=== PATIENT | female | born 1950 | race Caucasian/White ===

== ENCOUNTER → 2017-04-25 | Outpatient (CLI) | payer MEDICARE, BC ==
[~2017-04-25] MED LIST: ALLER CLEAR PO; Aldactone100 MG PO; BACL10 PO; CLARITIN10 MG; DULO30 PO; EFFEXOR; HYDACE5 PO; HYDMOR2 PO; Hard Nails2500 MCG PO; KRILL OIL500 MG; LEVSOD100 PO; LEVSOD125 PO; LEVSOD25 PO; LORA10ER PO; MELO7.5 PO; METF500 PO; NITR100CA PO; Norco 5-325 Ta1 EACH PO; OMEP40CA12 PO; ONDA4 PO; OXYACE5T PO; Omeprazole20 M1 PO; PREG25 PO; PREG75 PO; RXHYD5325 PO; RXHYDMOR2 PO; SPIR25 PO; VENL75ER PO
== END | disposition home or self-care (01) ==
LOC: PLD 13:08 → LAB SHORT 13:08
DX: N85.00 Endometrial hyperplasia, unspecified (principal)
CPT/HCPCS: 88305

== ENCOUNTER → 2017-11-15 | Outpatient (CLI) | payer MEDICARE, BC ==
[2017-11-15 12:57] LABS: Source, Urine Clean Catch
[2017-11-15 13:23] LABS: Appearance, Urine Hazy (Clear); Bilirubin, Urine Neg (Neg); Blood, Urine 2+ (Neg); Color, Urine Yellow (P-Yellow); Glucose Qualitative, Urine Neg (Neg); Ketones, Urine Neg (Neg); Leukocyte Esterase, Urine 3+ (Neg); Nitrite, Urine Pos (Neg); Protein, Urine Neg (Neg); Urobilinogen, Urine NORM (Normal)
[2017-11-15 13:43] LABS: White Blood Cells, Urine TNTC /hpf (0-5)
[2017-11-15 13:44] LABS: Bacteria Many /hpf; Squamous Epithelial Cells Few /hpf (Few)
== END | disposition home or self-care (01) ==
LOC: LAB SHORT 12:56 → LAB 12:56
PROVIDERS: Physical Medicine & Rehabilitation Pain Medicine
DX: Z40.9 Encounter for prophylactic surgery, unspecified (principal)
CPT/HCPCS: 81001

== ENCOUNTER 2018-08-24 19:15 | Emergency (ER) | payer MEDICARE, BC ==
[~2018-08-24] VITALS: Ht 154.9 cm; Wt 105.7 kg
[2018-08-24] MEDS ORDERED: LIDO700A20 TOP (20:32)
== END 2018-08-24 20:42 | disposition home or self-care (01) ==
LOC: ER 19:15
DX: S30.1XXA Contusion of abdominal wall, initial encounter (principal); W22.8XXA Striking against or struck by other objects, initial encounter; Z88.0 Allergy status to penicillin; Z88.2 Allergy status to sulfonamides; Z88.1 Allergy status to other antibiotic agents; Z88.5 Allergy status to narcotic agent; Z91.048 Other nonmedicinal substance allergy status; Z79.899 Other long term (current) drug therapy; E03.9 Hypothyroidism, unspecified
CPT/HCPCS: 72100; 72170; 96372; 99283-25; J3010

== ENCOUNTER 2019-02-24 19:16 | Emergency (ER) | payer MEDICARE, BC ==
[~2019-02-24] VITALS: Ht 154.9 cm; Wt 103.9 kg
[~2019-02-24 19:16] MED LIST changes: +LIDO700A20 TOP
[2019-02-24 20:26] LABS: BASOPHILS ABSOLUTE AUTO 0.08 K/mm3 (0.00-0.23); BASOPHILS PERCENT AUTO 1 % (0-2); EOSINOPHILS ABSOLUTE AUTO 0.34 K/mm3 (0.00-0.68); EOSINOPHILS PERCENT AUTO 4 % (0-6); Hematocrit 51.7 % (33.0-51.0); Hemoglobin 16.9 g/dL (11.5-16.0); IMMATURE GRAN ABSOLUTE AUTO 0.04 K/mm3 (0.00-0.10); IMMATURE GRAN PERCENT AUTO 0 % (0-1); LYMPHOCYTES ABSOLUTE AUTO 2.65 K/mm3 (0.84-5.20); LYMPHOCYTES PERCENT AUTO 28 % (21-46); MONOCYTES ABSOLUTE AUTO 0.85 K/mm3 (0.16-1.47); MONOCYTES PERCENT AUTO 9 % (4-13); Mean Corpuscular HGB 29.1 pg (26.0-34.0); Mean Corpuscular HGB Conc 32.7 g/dL (31.5-36.5); Mean Corpuscular Volume 89 fL (80-100); Mean Platelet Volume 9.2 fL (9.1-12.4); NEUTROPHILS ABSOLUTE AUTO 5.56 K/mm3 (1.96-9.15); NEUTROPHILS PERCENT AUTO 59 % (41-73); Platelet Count 402 K/mm3 (150-400); RDW Coefficient Variation 13.2 % (11.7-14.2); RDW Standard Deviation 43.3 fL (35.1-46.3); White Blood Cell Count 9.52 K/mm3 (4.00-11.30)
[2019-02-24 20:46] LABS: Alanine Aminotransfer (ALT/SGP 36 U/L (12-78); Albumin, Blood 3.7 g/dL (3.4-5.0); Albumin/Globulin Ratio 0.9 (0.8-1.8); Alk Phos 86 U/L (50-136); Anion Gap 7 mmol/L (6-16); Aspartate Aminotrans (AST/SGOT 22 U/L (12-37); Bilirubin, Total 0.3 mg/dL (0.1-1.0); Blood Urea Nitrogen 16 mg/dL (8-24); Bun/Creatinine Ratio 22.3 (12.0-20.0); CO2, Blood 24 mmol/L (21-32); Calcium, Blood 9.6 mg/dL (8.5-10.1); Chloride, Blood 109 mmol/L (98-108); Creatinine, Blood 0.72 mg/dL (0.40-1.00); Globulin, Blood 3.9 g/dL (2.2-4.0); Glomerular Filtration Rate >60 (60-); Glucose, Blood 103 mg/dL (70-99); Potassium, Blood 4.3 mmol/L (3.5-5.5); Sodium, Blood 140 mmol/L (136-145); Total Protein, Blood 7.6 g/dL (6.4-8.2); Troponin I <0.015 ng/mL (0.000-0.040)
[2019-02-24] MEDS ORDERED: Cleocin HCl300 MG PO (21:48)
[2019-02-24] MEDS ORDERED: BENZ100A PO (21:49)
== END 2019-02-24 22:01 | disposition home or self-care (01) ==
LOC: ER 19:16
PROVIDERS: Physician Assistant
DX: H66.91 Otitis media, unspecified, right ear (principal); Z88.0 Allergy status to penicillin; Z88.1 Allergy status to other antibiotic agents; Z88.2 Allergy status to sulfonamides; Z88.5 Allergy status to narcotic agent; Z91.048 Other nonmedicinal substance allergy status; Z88.8 Allergy status to other drugs, medicaments and biological substances; Z79.899 Other long term (current) drug therapy; E03.9 Hypothyroidism, unspecified
CPT/HCPCS: 36415; 71046; 80053; 84484; 85025; 93005; 93010; 99284-25

== ENCOUNTER 2019-03-07 18:27 | Emergency (ER) | payer MEDICARE, BC ==
[~2019-03-07] VITALS: Ht 154.9 cm; Wt 103.0 kg
[~2019-03-07 18:27] MED LIST changes: +BENZ100A PO; +Cleocin HCl300 MG PO
== END 2019-03-07 21:01 | disposition home or self-care (01) ==
LOC: ER 18:27
DX: J40 Bronchitis, not specified as acute or chronic (principal); H92.01 Otalgia, right ear; M79.7 Fibromyalgia; E03.9 Hypothyroidism, unspecified; G47.30 Sleep apnea, unspecified; Z88.0 Allergy status to penicillin; Z88.2 Allergy status to sulfonamides; Z88.1 Allergy status to other antibiotic agents; Z88.8 Allergy status to other drugs, medicaments and biological substances; Z88.5 Allergy status to narcotic agent; Z91.048 Other nonmedicinal substance allergy status; Z88.6 Allergy status to analgesic agent; Z79.899 Other long term (current) drug therapy
CPT/HCPCS: 99282

== ENCOUNTER 2019-03-17 19:35 | Emergency (ER) | payer MEDICARE, BC ==
[~2019-03-17] VITALS: Ht 157.5 cm; Wt 102.5 kg
== END 2019-03-17 23:17 | disposition home or self-care (01) ==
LOC: ER 19:35
DX: H92.01 Otalgia, right ear (principal); E03.9 Hypothyroidism, unspecified; M79.7 Fibromyalgia; Z88.0 Allergy status to penicillin; Z88.2 Allergy status to sulfonamides; Z88.1 Allergy status to other antibiotic agents; Z88.8 Allergy status to other drugs, medicaments and biological substances; Z91.048 Other nonmedicinal substance allergy status; Z88.5 Allergy status to narcotic agent
CPT/HCPCS: 70491; 99283-25; Q9967

== ENCOUNTER 2019-11-12 01:01 | Emergency (ER) | payer MEDICARE, BC ==
[~2019-11-12] VITALS: Ht 154.9 cm; Wt 104.3 kg
[2019-11-12] MEDS ORDERED: NYSTOP15 GM TOP (02:02)
== END 2019-11-12 02:23 | disposition home or self-care (01) ==
LOC: ER 01:01
DX: L30.4 Erythema intertrigo (principal); E03.9 Hypothyroidism, unspecified; Z88.0 Allergy status to penicillin; Z88.2 Allergy status to sulfonamides; Z88.5 Allergy status to narcotic agent; Z88.6 Allergy status to analgesic agent; Z88.1 Allergy status to other antibiotic agents; Z88.8 Allergy status to other drugs, medicaments and biological substances; Z79.899 Other long term (current) drug therapy
CPT/HCPCS: 99282

== ENCOUNTER → 2020-03-01 | Outpatient (CLI) | payer MEDICARE, BC ==
[~2020-03-01] MED LIST changes: +ASPI81CH PO; +CHOLP PO; +CLOB.05TO TOP; +DICLOFENAC SOD100 G1 TP; +EZET10 PO; +FAMO20 PO; +LEVOTHYROXINE PO; +NYSTOP15 GM TOP; +OXYCODONE-ACET1 EAC3 PO; +PRAVASTATIN SOD20 MG PO; +PSYLLIUM FIBER0.4 GM PO; +SPIR50 PO
== END ==
LOC: LAB 10:00 → LAB SHORT 10:00
DX: R19.7 Diarrhea, unspecified (principal)
CPT/HCPCS: 87015; 87045; 87046; 87177; 87205; 87209; 87493; 87899

== ENCOUNTER 2020-05-10 07:49 | Day surgery (SDC) | payer MEDICARE, BC ==
[~2020-05-10] VITALS: Ht 157.5 cm; Wt 107.8 kg
[~2020-05-10 07:49] MED LIST changes: -ASPI81CH PO; -CHOLP PO; -DICLOFENAC SOD100 G1 TP; -EZET10 PO; -FAMO20 PO; -LEVOTHYROXINE PO; -OXYCODONE-ACET1 EAC3 PO; -PRAVASTATIN SOD20 MG PO; -PSYLLIUM FIBER0.4 GM PO; -SPIR50 PO
--- NOTE | 2020-05-10 08:23 | NUR ---
History, Chart, Medications and Allergies reviewed before start of procedure. Patient States Post-Procedure ride home has been arranged. Patient states colon prep results clear.
--- NOTE | 2020-05-10 08:40 | NUR ---
05/10/20 0840 Shannan Alexander History, Chart, Medications and Allergies reviewed before start of procedure. Patient confirms NPO status and agrees with scheduled surgery. PATIENT DETERMINED TO BE ASA APPROPRIATE FOR PROPOFOL SEDATION PRIOR TO START OF PROCEDURE BY . 3-LEAD EKG REVIEWED WITH PHYSICIAN PRIOR TO START OF PROCEDURE. MONITOR INTACT WITH CONTINUOUS PULSE OXIMETRY AND INTERMITTENT BP. SUPPLEMENTAL O2 TO BE TITRATED THROUGHOUT PROCEDURE TO MAINTAIN O2 SATURATION ABOVE 90%.
[2020-05-31] MEDS ORDERED: OXYCODONE-ACET1 EAC3 PO (20:56)
[2020-05-31] MEDS ORDERED: DICLOFENAC SOD100 G1 TP (20:57)
== END 2020-05-10 10:15 | disposition home or self-care (01) ==
LOC: ORSCMMR 07:49 → ORD 08:30 → ORSCMMR 08:30
PROVIDERS: Internal Medicine Gastroenterology
PROC: 0DBL8ZX Excision of Transverse Colon, Via Natural or Artificial Opening Endoscopic, Diagnostic (ICD-10-PCS; principal; 2020-05-10 08:30)
PROC: 0DBK8ZX Excision of Ascending Colon, Via Natural or Artificial Opening Endoscopic, Diagnostic (ICD-10-PCS; principal; 2020-05-10 08:30)
PROC: 0DBN8ZX Excision of Sigmoid Colon, Via Natural or Artificial Opening Endoscopic, Diagnostic (ICD-10-PCS; principal; 2020-05-10 08:30)
DX: R19.7 Diarrhea, unspecified (principal); D12.2 Benign neoplasm of ascending colon; D12.3 Benign neoplasm of transverse colon; K63.5 Polyp of colon; F43.10 Post-traumatic stress disorder, unspecified; E11.9 Type 2 diabetes mellitus without complications; G47.33 Obstructive sleep apnea (adult) (pediatric); Z79.899 Other long term (current) drug therapy; E66.01 Morbid (severe) obesity due to excess calories; Z68.42 Body mass index [BMI] 45.0-49.9, adult
CPT/HCPCS: 88305; J2250; J3010; J7120

== ENCOUNTER → 2020-05-20 | Outpatient (CLI) | payer MEDICARE, BC ==
[~2020-05-20] MED LIST changes: +ASPI81CH PO; +CHOLP PO; +DICLOFENAC SOD100 G1 TP; +EZET10 PO; +FAMO20 PO; +LEVOTHYROXINE PO; +OXYCODONE-ACET1 EAC3 PO; +PRAVASTATIN SOD20 MG PO; +PSYLLIUM FIBER0.4 GM PO; +SPIR50 PO
[2020-05-22 14:09] LABS: SARS COV-2 IGG AB Negative (Negative)
== END | disposition home or self-care (01) ==
LOC: LAB SHORT 18:45 → LAB 18:45
PROVIDERS: Physician Assistant
DX: Z20.822 Contact with and (suspected) exposure to COVID-19 (principal)
CPT/HCPCS: 86769

== ENCOUNTER 2020-05-31 18:50 | Emergency (ER) | payer MEDICARE, BC ==
[~2020-05-31] VITALS: Ht 154.9 cm; Wt 106.1 kg
== END 2020-05-31 23:31 | disposition home or self-care (01) ==
LOC: ER 18:50
DX: E86.0 Dehydration (principal); E11.9 Type 2 diabetes mellitus without complications; E03.9 Hypothyroidism, unspecified; Z79.899 Other long term (current) drug therapy; Z88.0 Allergy status to penicillin; Z88.2 Allergy status to sulfonamides
CPT/HCPCS: 36415; 80053; 81001; 81003; 85025; 87086; 93005; 93010; 99284-25; J7120; P9612

== ENCOUNTER 2020-07-20 16:53 | Observation (INO) | payer MEDICARE, BC ==
[~2020-07-20] VITALS: Ht 154.9 cm; Wt 109.7 kg
[~2020-07-20 16:53] MED LIST changes: -ASPI81CH PO; -CHOLP PO; -EZET10 PO; -FAMO20 PO; -LEVOTHYROXINE PO; -PRAVASTATIN SOD20 MG PO; -PSYLLIUM FIBER0.4 GM PO; -SPIR50 PO
[2020-07-20 17:21] LABS: BASOPHILS ABSOLUTE AUTO 0.07 K/mm3 (0.00-0.23); BASOPHILS PERCENT AUTO 1 % (0-2); EOSINOPHILS ABSOLUTE AUTO 0.33 K/mm3 (0.00-0.68); EOSINOPHILS PERCENT AUTO 3 % (0-6); Hematocrit 47.2 % (33.0-51.0); Hemoglobin 15.2 g/dL (11.5-16.0); IMMATURE GRAN ABSOLUTE AUTO 0.08 K/mm3 (0.00-0.10); IMMATURE GRAN PERCENT AUTO 1 % (0-1); LYMPHOCYTES ABSOLUTE AUTO 2.81 K/mm3 (0.84-5.20); LYMPHOCYTES PERCENT AUTO 29 % (21-46); MONOCYTES ABSOLUTE AUTO 0.67 K/mm3 (0.16-1.47); MONOCYTES PERCENT AUTO 7 % (4-13); Mean Corpuscular HGB 29.2 pg (26.0-34.0); Mean Corpuscular HGB Conc 32.2 g/dL (31.5-36.5); Mean Corpuscular Volume 91 fL (80-100); Mean Platelet Volume 9.2 fL (9.1-12.4); NEUTROPHILS ABSOLUTE AUTO 5.66 K/mm3 (1.96-9.15); NEUTROPHILS PERCENT AUTO 59 % (41-73); Platelet Count 390 K/mm3 (150-400); RDW Coefficient Variation 13.2 % (11.7-14.2); RDW Standard Deviation 43.9 fL (35.1-46.3); Red Blood Cell Count 5.21 M/mm3 (3.80-5.20); White Blood Cell Count 9.62 K/mm3 (4.00-11.30)
[2020-07-20 17:43] LABS: Alanine Aminotransfer (ALT/SGP 39 U/L (12-78); Albumin, Blood 3.4 g/dL (3.4-5.0); Alk Phos 96 U/L (50-136); Anion Gap 5 mmol/L (6-16); Aspartate Aminotrans (AST/SGOT 30 U/L (12-37); Bilirubin, Total 0.3 mg/dL (0.1-1.0); Blood Urea Nitrogen 14 mg/dL (8-24); Bun/Creatinine Ratio 18.3 (12.0-20.0); CO2, Blood 26 mmol/L (21-32); Calcium, Blood 8.8 mg/dL (8.5-10.1); Chloride, Blood 109 mmol/L (98-108); Creatinine, Blood 0.77 mg/dL (0.40-1.00); Globulin, Blood 3.5 g/dL (2.2-4.0); Glomerular Filtration Rate >60 (60-); Glucose, Blood 188 mg/dL (70-99); Potassium, Blood 4.5 mmol/L (3.5-5.5); Sodium, Blood 140 mmol/L (136-145); Total Protein, Blood 6.9 g/dL (6.4-8.2); Troponin I <0.015 ng/mL (0.000-0.040)
[2020-07-20] MEDS ORDERED: PRAVASTATIN SOD20 MG PO (20:14)
[2020-07-20] MEDS ORDERED: LEVOTHYROXINE PO (20:14)
[2020-07-20] MEDS ORDERED: SPIR50 PO (22:32)
[2020-07-21 05:30] LABS: BASOPHILS ABSOLUTE AUTO 0.11 K/mm3 (0.00-0.23); BASOPHILS PERCENT AUTO 1 % (0-2); EOSINOPHILS ABSOLUTE AUTO 0.37 K/mm3 (0.00-0.68); EOSINOPHILS PERCENT AUTO 3 % (0-6); Hematocrit 43.3 % (33.0-51.0); Hemoglobin 13.9 g/dL (11.5-16.0); IMMATURE GRAN ABSOLUTE AUTO 0.09 K/mm3 (0.00-0.10); IMMATURE GRAN PERCENT AUTO 1 % (0-1); LYMPHOCYTES ABSOLUTE AUTO 4.47 K/mm3 (0.84-5.20); LYMPHOCYTES PERCENT AUTO 41 % (21-46); MONOCYTES ABSOLUTE AUTO 0.95 K/mm3 (0.16-1.47); MONOCYTES PERCENT AUTO 9 % (4-13); Mean Corpuscular HGB 29.1 pg (26.0-34.0); Mean Corpuscular HGB Conc 32.1 g/dL (31.5-36.5); Mean Corpuscular Volume 91 fL (80-100); Mean Platelet Volume 9.5 fL (9.1-12.4); NEUTROPHILS ABSOLUTE AUTO 4.89 K/mm3 (1.96-9.15); NEUTROPHILS PERCENT AUTO 45 % (41-73); Platelet Count 334 K/mm3 (150-400); RDW Standard Deviation 43.2 fL (35.1-46.3); Red Blood Cell Count 4.77 M/mm3 (3.80-5.20); White Blood Cell Count 10.88 K/mm3 (4.00-11.30)
[2020-07-21 06:05] LABS: Alanine Aminotransfer (ALT/SGP 34 U/L (12-78); Albumin, Blood 3.1 g/dL (3.4-5.0); Albumin/Globulin Ratio 1.1 (0.8-1.8); Alk Phos 81 U/L (50-136); Anion Gap 7 mmol/L (6-16); Aspartate Aminotrans (AST/SGOT 21 U/L (12-37); Bilirubin, Total 0.2 mg/dL (0.1-1.0); Blood Urea Nitrogen 14 mg/dL (8-24); Bun/Creatinine Ratio 17.2 (12.0-20.0); CHOL/HDL RATIO 5.3; CO2, Blood 26 mmol/L (21-32); Calcium, Blood 8.4 mg/dL (8.5-10.1); Chloride, Blood 106 mmol/L (98-108); Cholesterol 192 mg/dL (50-200); Creatinine, Blood 0.81 mg/dL (0.40-1.00); Globulin, Blood 2.8 g/dL (2.2-4.0); Glomerular Filtration Rate >60 (60-); Glucose, Blood 85 mg/dL (70-99); HDL Cholesterol 36 mg/dL (>39); LDL/HDL RATIO 3.4; Low Density Lipoprotein Chol 122 mg/dL (0-110); Potassium, Blood 3.8 mmol/L (3.5-5.5); Sodium, Blood 139 mmol/L (136-145); Total Protein, Blood 5.9 g/dL (6.4-8.2); Triglycerides 169 mg/dL (30-160); Very Low Density Lipoprot Chol 33 mg/dL (6-32)
--- NOTE | 2020-07-21 06:37 | NUR ---
SHIFT SUMMARY: ADMITTED LAST NIGHT DUE TO NUMBNESS TO LEFT SIDE JAW AND FACE. AOX3. INDEPENDENT TO BATHROOM. REPORTS A DECREASE IN SENSATION ONLY TO FACE NOW. RECENT SURGERY ON NERVE STIMILATOR IN NECK DUE MULTIPLE BACK SURGERIES. SHE HAD ONE OF THE LEADS REPLACED AND A BATTERY. ALL NEURO CHECKS HAVE BEEN NEGATIVE ALL NIGHT. HEAD CT WAS NEGATIVE ALONG WITH XRAY. PLAN MRI THIS AM. DOES GET OCCATIONAL LIGHTHEADNESS AND DIZZINESS WHEN MOVING HEAD, SHE HAS ALREADY NOTIFIED HER NEURO DOCTOR REGARDING THIS ISSUES. VSS/AFEBRILE. HEADACHE, TYLENOL GIVEN. SLEPT ONLY FEW OURS. WILL REPORT TO DAYSHIFT. CALL LIGHT IN REACH.
--- NOTE | 2020-07-21 11:14 | NUR ---
MRI: CALLED AT 0920 AND GIVEN CONTACT INFORMATION TO CONFIRM IF NEUROTRANSMITTER IS MRI COMPATIBLE OR NOT.
--- NOTE | 2020-07-21 16:29 | NUR ---
Spiritual care note: Lengthy visit with Jeanie. I was tasked to speak with her about advanced care planning. She has many life stressors: caring for special needs young adults at home, a spouse in early dementia, numerous health issues, and a dtr who may be nearing end-of-life. She was interested in completing an Advanced Directive, but would like to discuss her wishes with family. I provided theraputic listening and spiritual direction to good effect. She admits the stress in her life may be exacerbating her physical illnesses. Prayer was well-recieved. She has a strong valerie that helps sustain her. She may be discharged later today.
[2020-07-21] MEDS ORDERED: ASPI81CH PO (16:35)
[2020-07-21] MEDS ORDERED: CHOLP PO (16:35)
[2020-07-21] MEDS ORDERED: FAMO20 PO (16:36)
[2020-07-21] MEDS ORDERED: EZET10 PO (16:36)
[2020-07-21] MEDS ORDERED: PSYLLIUM FIBER0.4 GM PO (16:37)
--- NOTE | 2020-07-21 18:41 | NUR ---
PATIENT DISCHARGED HOME WITH . TEACHBACK METHOD USED. PATIENT AND VERBALIZED UNDERSTANDING OF THE DISCHARGE INSTRUCTIONS AND ALL OF THEIR QUESTIONS WERE ANSWERED. ALL PERSONAL BELONGINGS SENT WITH PATIENT AT TIME OF DISCHARGE.
== END 2020-07-21 18:44 | disposition home or self-care (01) ==
LOC: ER 16:53 → MEDS 16:54
PROVIDERS: Physician Assistant; ADMIT Internal Medicine
DX: I63.9 Cerebral infarction, unspecified (principal); R20.0 Anesthesia of skin; E03.9 Hypothyroidism, unspecified; E11.22 Type 2 diabetes mellitus with diabetic chronic kidney disease; N18.30 Chronic kidney disease, stage 3 unspecified; G47.33 Obstructive sleep apnea (adult) (pediatric); K58.9 Irritable bowel syndrome, unspecified; G89.29 Other chronic pain; M19.90 Unspecified osteoarthritis, unspecified site; M79.7 Fibromyalgia; Z88.1 Allergy status to other antibiotic agents; Z88.5 Allergy status to narcotic agent; Z88.0 Allergy status to penicillin; Z88.2 Allergy status to sulfonamides; Z88.8 Allergy status to other drugs, medicaments and biological substances
CPT/HCPCS: 36415; 70450; 71045; 72040; 80053; 80061; 83036; 84443; 84484; 85025; 93005; 93010; 93306; 93880; 96372; 99285-25; A9270; G0378; J1650

== ENCOUNTER 2020-12-11 18:05 | Emergency (ER) | payer MEDICARE, BC ==
[~2020-12-11] VITALS: Ht 154.9 cm; Wt 107.0 kg
[~2020-12-11 18:05] MED LIST changes: +ASPI81CH PO; +CHOLP PO; +EZET10 PO; +FAMO20 PO; +LEVOTHYROXINE PO; +PRAVASTATIN SOD20 MG PO; +PSYLLIUM FIBER0.4 GM PO; +SPIR50 PO
[2020-12-11 18:34] LABS: Source, Urine Clean Catch
[2020-12-11 18:40] LABS: Appearance, Urine Clear (Clear); Bilirubin, Urine Neg (Neg); Blood, Urine 2+ (Neg); Color, Urine Yellow (P-Yellow); Glucose Qualitative, Urine Neg (Neg); Ketones, Urine Neg (Neg); Leukocyte Esterase, Urine 3+ (Neg); Nitrite, Urine Neg (Neg); Protein, Urine 1+ (Neg); Urobilinogen, Urine NORM (Normal); pH, Urine 6.5 (5.0-8.0)
[2020-12-11 18:58] LABS: White Blood Cells, Urine 25-50 /hpf (0-5)
[2020-12-11 18:59] LABS: Red Blood Cells, Urine 0-2 /hpf (0-2); Squamous Epithelial Cells Mod /hpf (Few)
[2020-12-11 19:05] LABS: Bacteria Mod /hpf
[2020-12-11] MEDS ORDERED: Macrobid 100 M100 MG PO (19:18)
== END 2020-12-11 19:50 | disposition home or self-care (01) ==
LOC: ER 18:05
PROVIDERS: Physician Assistant
DX: N39.0 Urinary tract infection, site not specified (principal); E11.9 Type 2 diabetes mellitus without complications; E03.9 Hypothyroidism, unspecified; G47.30 Sleep apnea, unspecified; Z79.82 Long term (current) use of aspirin; Z79.899 Other long term (current) drug therapy; Z88.0 Allergy status to penicillin; Z88.2 Allergy status to sulfonamides; Z88.1 Allergy status to other antibiotic agents; Z88.5 Allergy status to narcotic agent; Z88.8 Allergy status to other drugs, medicaments and biological substances
CPT/HCPCS: 81001; 87086; 99283; A9270

== ENCOUNTER 2021-02-22 20:20 | Emergency (ER) | payer MEDICARE, BC ==
[~2021-02-22] VITALS: Ht 154.9 cm; Wt 107.5 kg
[~2021-02-22 20:20] MED LIST changes: +Macrobid 100 M100 MG PO
[2021-02-22] MEDS ORDERED: CLEM1.34 (22:33)
[2021-02-22] MEDS ORDERED: PSEU120ER PO (22:35)
== END 2021-02-22 22:43 | disposition home or self-care (01) ==
LOC: ER 20:20
DX: B34.9 Viral infection, unspecified (principal); E11.9 Type 2 diabetes mellitus without complications; G47.33 Obstructive sleep apnea (adult) (pediatric); E03.9 Hypothyroidism, unspecified; M19.90 Unspecified osteoarthritis, unspecified site; Z88.0 Allergy status to penicillin; Z88.2 Allergy status to sulfonamides; Z88.1 Allergy status to other antibiotic agents; Z88.5 Allergy status to narcotic agent; Z91.048 Other nonmedicinal substance allergy status; Z88.8 Allergy status to other drugs, medicaments and biological substances; Z79.899 Other long term (current) drug therapy
CPT/HCPCS: 99283

== ENCOUNTER 2021-02-26 15:41 | Emergency (ER) | payer MEDICARE, BC ==
[~2021-02-26] VITALS: Ht 154.9 cm; Wt 106.1 kg
[~2021-02-26 15:41] MED LIST changes: +CLEM1.34; +PSEU120ER PO
[2021-02-26 16:09] LABS: BASOPHILS ABSOLUTE AUTO 0.08 K/mm3 (0.00-0.23); BASOPHILS PERCENT AUTO 1 % (0-2); EOSINOPHILS ABSOLUTE AUTO 0.16 K/mm3 (0.00-0.68); EOSINOPHILS PERCENT AUTO 2 % (0-6); Hematocrit 50.6 % (33.0-51.0); Hemoglobin 16.4 g/dL (11.5-16.0); IMMATURE GRAN ABSOLUTE AUTO 0.09 K/mm3 (0.00-0.10); IMMATURE GRAN PERCENT AUTO 1 % (0-1); LYMPHOCYTES ABSOLUTE AUTO 1.99 K/mm3 (0.84-5.20); LYMPHOCYTES PERCENT AUTO 22 % (21-46); MONOCYTES ABSOLUTE AUTO 0.38 K/mm3 (0.16-1.47); MONOCYTES PERCENT AUTO 4 % (4-13); Mean Corpuscular HGB 28.5 pg (26.0-34.0); Mean Corpuscular HGB Conc 32.4 g/dL (31.5-36.5); Mean Corpuscular Volume 88 fL (80-100); Mean Platelet Volume 9.3 fL (9.1-12.4); NEUTROPHILS ABSOLUTE AUTO 6.19 K/mm3 (1.96-9.15); NEUTROPHILS PERCENT AUTO 70 % (41-73); Platelet Count 365 K/mm3 (150-400); RDW Coefficient Variation 13.5 % (11.7-14.2); RDW Standard Deviation 43.1 fL (35.1-46.3); Red Blood Cell Count 5.76 M/mm3 (3.80-5.20); White Blood Cell Count 8.89 K/mm3 (4.00-11.30)
[2021-02-26 16:26] LABS: Alanine Aminotransfer (ALT/SGP 63 U/L (12-78); Albumin, Blood 3.7 g/dL (3.4-5.0); Albumin/Globulin Ratio 0.9 (0.8-1.8); Alk Phos 94 U/L (50-136); Anion Gap 9 mmol/L (6-16); Aspartate Aminotrans (AST/SGOT 43 U/L (12-37); Bilirubin, Total 0.2 mg/dL (0.1-1.0); Blood Urea Nitrogen 12 mg/dL (8-24); Bun/Creatinine Ratio 14.5 (12.0-20.0); CO2, Blood 24 mmol/L (21-32); Calcium, Blood 8.8 mg/dL (8.5-10.1); Chloride, Blood 105 mmol/L (98-108); Creatinine, Blood 0.83 mg/dL (0.40-1.00); Globulin, Blood 3.9 g/dL (2.2-4.0); Glomerular Filtration Rate >60 (60-); Glucose, Blood 147 mg/dL (70-99); Potassium, Blood 3.9 mmol/L (3.5-5.5); Sodium, Blood 138 mmol/L (136-145); Total Protein, Blood 7.6 g/dL (6.4-8.2)
[2021-02-26 16:38] LABS: Influenza A, PCR NEGATIVE (NEGATIVE); Influenza B, PCR NEGATIVE (NEGATIVE); Resp Syncytial Virus, PCR NEGATIVE (NEGATIVE)
[2021-02-26 16:52] LABS: SARS-Cov-2 (COVID-19) PCR, MMC POSITIVE (NEGATIVE)
[2021-02-26] MEDS ORDERED: PSEU120ER PO (17:40)
== END 2021-02-26 18:01 | disposition home or self-care (01) ==
LOC: ER 15:41
PROVIDERS: Physician Assistant
DX: U07.1 COVID-19 (principal); G47.30 Sleep apnea, unspecified; E03.9 Hypothyroidism, unspecified; Z88.0 Allergy status to penicillin; Z88.2 Allergy status to sulfonamides; Z88.1 Allergy status to other antibiotic agents; Z88.5 Allergy status to narcotic agent; Z91.048 Other nonmedicinal substance allergy status; Z88.6 Allergy status to analgesic agent; Z88.8 Allergy status to other drugs, medicaments and biological substances; Z79.899 Other long term (current) drug therapy
CPT/HCPCS: 0241U; 36415; 71045; 80053; 85025

== ENCOUNTER 2021-10-16 07:30 | Day surgery (SDC) | payer MEDICARE, BC | END 2021-10-16 23:03 | disposition home or self-care (01) | LOC: MOI MAM 07:30 | DX: C50.919 Malignant neoplasm of unspecified site of unspecified female breast (principal) | CPT/HCPCS: 19285; 77065; A4648 ==

== ENCOUNTER 2021-11-13 08:50 | Day surgery (SDC) | payer MEDICARE, BC ==
[~2021-11-13] VITALS: Ht 154.9 cm; Wt 109.5 kg
[~2021-11-13 08:50] MED LIST changes: +ALLER-CLEAR PO; +EUTHYROX125 MCG PO; -LEVOTHYROXINE PO; +LOPE2C PO; +METAMUCIL POWD798 GM PO; +MIRALAX1713 PO; +NARCAN4 M1; +OXYC5 PO; +PRED FORTE5 ML; +TIZANIDINE HCL2 MG PO; +VENL25 PO
[2021-11-13] MEDS ORDERED: ACETAMINOPHEN500 MG PO (10:19)
--- NOTE | 2021-11-13 11:06 | NUR ---
VERIFIED ORDER FOR ANCEF WITH DR BLOCK AND WITH DR LOVETT TO CONFIRM OK TO GIVE DESPITE ALLERGY TO [facility].
--- NOTE | 2021-11-13 15:02 | NUR ---
TOLERATED JUICE AND PUDDING, TOOK NORCO PER ORDER, DRG TO RIGHT BREAST C/D/I WITH BREAST BINDER ON, SIG OTHER AT BEDSIDE. PT DRESSED. Discharge instructions reviewed with patient. Patient verbalizes understanding. Copy given to patient to take home.
--- NOTE | 2021-11-13 15:29 | NUR ---
1520- PT AMBULATED WITH SBA FROM TO BATHROOM, VOIDED AND DISCHARGED VIA W/C. 2ND DOSE OF NORCO GIVEN PER ORDER PT STATES PAIN TO INCISION IS STILL 7/10.
== END 2021-11-13 15:19 | disposition home or self-care (01) ==
LOC: NM 08:50 → ORSCMMR 08:51 → NM 09:00
DX: C50.411 Malignant neoplasm of upper-outer quadrant of right female breast (principal); M19.90 Unspecified osteoarthritis, unspecified site; J45.909 Unspecified asthma, uncomplicated; M79.7 Fibromyalgia; G47.33 Obstructive sleep apnea (adult) (pediatric); K21.9 Gastro-esophageal reflux disease without esophagitis; N18.2 Chronic kidney disease, stage 2 (mild); E66.01 Morbid (severe) obesity due to excess calories; G89.29 Other chronic pain; E03.9 Hypothyroidism, unspecified; Z17.0 Estrogen receptor positive status [ER+]; Z88.1 Allergy status to other antibiotic agents; Z88.8 Allergy status to other drugs, medicaments and biological substances; Z88.5 Allergy status to narcotic agent; Z88.6 Allergy status to analgesic agent; Z88.2 Allergy status to sulfonamides; Z91.048 Other nonmedicinal substance allergy status; Z68.42 Body mass index [BMI] 45.0-49.9, adult
CPT/HCPCS: 38792; A9270; A9520; J0690; J1100; J1885; J2250; J2405; J2704; J2795; J3010; J7120; Q9968

== ENCOUNTER 2021-12-14 17:57 | Emergency (ER) | payer MEDICARE, BC ==
[~2021-12-14] VITALS: Ht 154.9 cm; Wt 108.9 kg
[~2021-12-14 17:57] MED LIST changes: +ACETAMINOPHEN500 MG PO
[2021-12-14 18:34] LABS: BASOPHILS ABSOLUTE AUTO 0.09 K/mm3 (0.00-0.23); BASOPHILS PERCENT AUTO 1 % (0-2); EOSINOPHILS ABSOLUTE AUTO 0.31 K/mm3 (0.00-0.68); EOSINOPHILS PERCENT AUTO 3 % (0-6); Hemoglobin 14.4 g/dL (11.5-16.0); IMMATURE GRAN ABSOLUTE AUTO 0.12 K/mm3 (0.00-0.10); IMMATURE GRAN PERCENT AUTO 1 % (0-1); LYMPHOCYTES PERCENT AUTO 28 % (21-46); MONOCYTES ABSOLUTE AUTO 0.79 K/mm3 (0.16-1.47); MONOCYTES PERCENT AUTO 8 % (4-13); Mean Corpuscular HGB 29.6 pg (26.0-34.0); Mean Corpuscular HGB Conc 32.7 g/dL (31.5-36.5); Mean Corpuscular Volume 90 fL (80-100); Mean Platelet Volume 9.2 fL (9.1-12.4); NEUTROPHILS ABSOLUTE AUTO 5.91 K/mm3 (1.96-9.15); NEUTROPHILS PERCENT AUTO 59 % (41-73); Platelet Count 386 K/mm3 (150-400); RDW Coefficient Variation 13.8 % (11.7-14.2); RDW Standard Deviation 46.3 fL (35.1-46.3); Red Blood Cell Count 4.87 M/mm3 (3.80-5.20); White Blood Cell Count 10.02 K/mm3 (4.00-11.30)
[2021-12-14 18:56] LABS: Albumin, Blood 3.2 g/dL (3.4-5.0); Albumin/Globulin Ratio 1.1 (0.8-1.8); Bilirubin, Total 0.3 mg/dL (0.1-1.0); Bun/Creatinine Ratio 13.7 (12.0-20.0); Creatinine, Blood 0.73 mg/dL (0.40-1.00); Globulin, Blood 2.9 g/dL (2.2-4.0); Potassium, Blood 3.8 mmol/L (3.5-5.5); Total Protein, Blood 6.1 g/dL (6.4-8.2)
== END 2021-12-15 01:14 | disposition home or self-care (01) ==
LOC: ER 17:57
PROVIDERS: Physician Assistant
DX: R06.00 Dyspnea, unspecified (principal); E11.9 Type 2 diabetes mellitus without complications; E03.9 Hypothyroidism, unspecified; Z79.899 Other long term (current) drug therapy; Z79.890 Hormone replacement therapy; Z88.0 Allergy status to penicillin; Z88.2 Allergy status to sulfonamides; Z88.1 Allergy status to other antibiotic agents; Z88.6 Allergy status to analgesic agent; Z91.09 Other allergy status, other than to drugs and biological substances
CPT/HCPCS: 36415; 71046; 71260; 80053; 83880; 84484; 85025; 93005; 93010; Q9967

== ENCOUNTER 2022-04-22 17:24 | Emergency (ER) | payer MEDICARE, BC ==
[~2022-04-22] VITALS: Ht 154.9 cm; Wt 108.9 kg
[2022-04-23] MEDS ORDERED: AMOCLA875 PO (18:56)
== END 2022-04-22 18:06 | disposition home or self-care (01) ==
LOC: ER 17:24
DX: K11.5 Sialolithiasis (principal); E03.9 Hypothyroidism, unspecified; Z88.0 Allergy status to penicillin; Z88.2 Allergy status to sulfonamides; Z91.09 Other allergy status, other than to drugs and biological substances; Z88.1 Allergy status to other antibiotic agents; Z88.8 Allergy status to other drugs, medicaments and biological substances; Z79.890 Hormone replacement therapy; Z79.899 Other long term (current) drug therapy
CPT/HCPCS: 99283

== ENCOUNTER 2022-05-15 13:40 | Inpatient (IN) | payer MEDICARE, BC ==
[~2022-05-15] VITALS: Ht 154.9 cm; Wt 109.3 kg
[~2022-05-15 13:40] MED LIST changes: +AMOCLA875 PO
[2022-05-15] MEDS ORDERED: ANASTROZOLE1 M7 PO (14:29)
[2022-05-15 14:41] LABS: Influenza A, PCR NEGATIVE (NEGATIVE); Influenza B, PCR NEGATIVE (NEGATIVE); Resp Syncytial Virus, PCR NEGATIVE (NEGATIVE); SARS-Cov-2 (COVID-19) PCR, MMC NEGATIVE (NEGATIVE)
[2022-05-15 14:43] LABS: BASOPHILS ABSOLUTE AUTO 0.12 K/mm3 (0.00-0.23); BASOPHILS PERCENT AUTO 1 % (0-2); EOSINOPHILS ABSOLUTE AUTO 0.23 K/mm3 (0.00-0.68); EOSINOPHILS PERCENT AUTO 2 % (0-6); Hematocrit 45.9 % (33.0-51.0); IMMATURE GRAN ABSOLUTE AUTO 0.19 K/mm3 (0.00-0.10); IMMATURE GRAN PERCENT AUTO 1 % (0-1); LYMPHOCYTES ABSOLUTE AUTO 0.82 K/mm3 (0.84-5.20); LYMPHOCYTES PERCENT AUTO 6 % (21-46); MONOCYTES ABSOLUTE AUTO 0.64 K/mm3 (0.16-1.47); MONOCYTES PERCENT AUTO 4 % (4-13); Mean Corpuscular HGB 29.2 pg (26.0-34.0); Mean Corpuscular HGB Conc 32.7 g/dL (31.5-36.5); Mean Corpuscular Volume 90 fL (80-100); NEUTROPHILS ABSOLUTE AUTO 12.43 K/mm3 (1.96-9.15); NEUTROPHILS PERCENT AUTO 86 % (41-73); Platelet Count 385 K/mm3 (150-400); RDW Coefficient Variation 14.4 % (11.7-14.2); RDW Standard Deviation 47.5 fL (35.1-46.3); Red Blood Cell Count 5.13 M/mm3 (3.80-5.20); White Blood Cell Count 14.43 K/mm3 (4.00-11.30)
[2022-05-15 15:12] LABS: Albumin, Blood 3.2 g/dL (3.4-5.0); Albumin/Globulin Ratio 0.8 (0.8-1.8); Bilirubin, Total 0.7 mg/dL (0.1-1.0); Bun/Creatinine Ratio 13.5 (12.0-20.0); Calcium, Blood 8.8 mg/dL (8.5-10.1); Creatinine, Blood 0.67 mg/dL (0.40-1.00); Potassium, Blood 4.3 mmol/L (3.5-5.5); Total Protein, Blood 7.2 g/dL (6.4-8.2)
[2022-05-15 17:11] LABS: Bicarbonate Venous 25.6 mmol/L (24.0-30.0); PCO2 Venous 36.2 mmHg (38-42); pH Blood Venous 7.45 (7.34-7.37)
[2022-05-15 21:06] LABS: Adenovirus Not Detected (NOT DETECT); Bordetella pertussis Not Detected (NOT DETECT); Chlamydophila pneumoniae Not Detected (NOT DETECT); Coronavirus 229E Not Detected (NOT DETECT); Coronavirus HKU1 Not Detected (NOT DETECT); Coronavirus NL63 Not Detected (NOT DETECT); Coronavirus OC43 Not Detected (NOT DETECT); Human Metapneumovirus Not Detected (NOT DETECT); Human Rhinovirus/Enterovirus Detected (NOT DETECT); Influenza A/2009-H1 Not Detected (NOT DETECT); Influenza A/H1 Not Detected (NOT DETECT); Influenza A/H3 Not Detected (NOT DETECT); Influenza B Not Detected (NOT DETECT); Mycoplasma pneumoniae Not Detected (NOT DETECT); Parainfluenza Virus 1 Not Detected (NOT DETECT); Parainfluenza Virus 2 Not Detected (NOT DETECT); Parainfluenza Virus 3 Not Detected (NOT DETECT); Parainfluenza Virus 4 Not Detected (NOT DETECT); Respiratory Syncytial Virus Not Detected (NOT DETECT); SARS-Cov-2 (COVID-19), BioFire Not Detected (NOT DETECT)
--- NOTE | 2022-05-15 23:27 | NUR ---
PATIENT IS A NEW ADMIT FROM THE ED. AXOX 4 AND SBA TRANSFER FROM [facility] TO BED. ON 2L O2 NC AND RA BASELINE. DENIES CHEST PAIN AND N/V. SOB W/EXERTION. SPOUSE PRESENT ON ADMIT AND STAYED FOR A FEW HOURS. TELEMETRY PLACED AND NSR 95. DROPLET PRECAUTION: ENTERO/RHINO VIRUS DETECTED. NO BP OR LAB DRAWS IN RIGHT ARM. ORIENTED TO ROOM AND CALL LIGHT SYSTEM. CALL LIGHT IN REACH. WCTM
--- NOTE | 2022-05-16 04:09 | NUR ---
SHIFT SUMMARY PATIENT HAD NO ACUTE CHANGES. AXOX 4 AND SBA TO BSC. ON 2L O2 NC AND RA BASELINE. SOB W/EXERTION. DENIES CHEST PAIN AND N/V. EGEGIK BUT HAS HEARING AIDS AT BEDSIDE. PIV REMAINS INTACT. SCHEDULE IV SOLU-MEDROL GIVEN PER EMAR. CAMP COORDINATOR REPORTS NSR 95. DROPLET PRECAUTIONS: ENTERO/RHINO DETECTED. 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 MILD HYPERTENSION AND IV APRESOLINE 10 MG GIVEN FOR SBP >160. BP 163/78 AND WILL RECHECK. COOPERATIVE WITH CARE. CALL LIGHT IN REACH. BED IN LOWEST POSITION. WILL CONTINUE TO MONITOR UNTIL DAY SHIFT NURSE ASSUMES CARE.
[2022-05-16] MEDS ORDERED: CHOLESTYRAMI239.4 G1 PO (11:02)
--- NOTE | 2022-05-16 18:27 | NUR ---
SHIFT SUMMARY PT CHATTY WITH STAFF AND CAN GET SHORT OF BREATH WITH ACTIVITY. BLOOD SUGARS HIGH TODAY AND MD NOTIFIED. INSULIN GIVEN EACH TIME. UP TO BATHROOM INDEPENDENTLY WITH FWW AND APPEARS TO TOLERATE WELL. HAS TOLERATED ROOM AIR AND CONTINUOUS PULSE OX SHOWS O2 IN MID TO LOW 90'S.
--- NOTE | 2022-05-17 03:50 | NUR ---
SHIFT MOSTLY UNREMARKABLE. PT HAD CPAP ON LATE IN EVENING BUT WAS UNABLE TO TOLERATE AND PROMPTLY REMOVED. SATTING >92% ON ROOM AIR. MILD DYSPNEA WITH EXERTION/TRANSFER BUT QUICKLY RESOLVES ONCE SHE RELAXES. PLEASANT AND COOPERATIVE WITH CARE. STEADY ON FEET, SBA TO BATHROOM. PAIN WELL MANAGED ON CURRENT MEDICATION REGIMEN. PT REPORTED TENDERNESS TO TOUCH AT IV IN [place]AR[place] BUT IT FLUSHES WELL. SALINE LOCKED AT THIS TIME. TELE RUNNING THROUGHOUT NIGHT, HAS BEEN RUNNING MILD TACHYCARDIA SINCE SHIFT START. ASYMPTOMATIC. CALL LIGHT LEFT WITHIN REACH .
[2022-05-17 05:14] LABS: BASOPHILS ABSOLUTE AUTO 0.03 K/mm3 (0.00-0.23); BASOPHILS PERCENT AUTO 0 % (0-2); EOSINOPHILS PERCENT AUTO 0 % (0-6); Hematocrit 43.9 % (33.0-51.0); Hemoglobin 14.6 g/dL (11.5-16.0); IMMATURE GRAN ABSOLUTE AUTO 0.14 K/mm3 (0.00-0.10); IMMATURE GRAN PERCENT AUTO 1 % (0-1); LYMPHOCYTES ABSOLUTE AUTO 1.37 K/mm3 (0.84-5.20); LYMPHOCYTES PERCENT AUTO 10 % (21-46); MONOCYTES ABSOLUTE AUTO 0.49 K/mm3 (0.16-1.47); MONOCYTES PERCENT AUTO 4 % (4-13); Mean Corpuscular HGB 29.7 pg (26.0-34.0); Mean Corpuscular HGB Conc 33.3 g/dL (31.5-36.5); Mean Corpuscular Volume 89 fL (80-100); Mean Platelet Volume 9.9 fL (9.1-12.4); NEUTROPHILS ABSOLUTE AUTO 11.56 K/mm3 (1.96-9.15); NEUTROPHILS PERCENT AUTO 85 % (41-73); Platelet Count 431 K/mm3 (150-400); RDW Coefficient Variation 14.5 % (11.7-14.2); RDW Standard Deviation 47.3 fL (35.1-46.3); Red Blood Cell Count 4.92 M/mm3 (3.80-5.20); White Blood Cell Count 13.59 K/mm3 (4.00-11.30)
[2022-05-17 05:34] LABS: Anion Gap 5 mmol/L (6-16); Blood Urea Nitrogen 26 mg/dL (8-24); Bun/Creatinine Ratio 37.9 (12.0-20.0); CO2, Blood 24 mmol/L (21-32); Calcium, Blood 9.6 mg/dL (8.5-10.1); Chloride, Blood 106 mmol/L (98-108); Creatinine, Blood 0.69 mg/dL (0.40-1.00); Glomerular Filtration Rate 93 (60-); Glucose, Blood 322 mg/dL (70-99); Phosphorus, Blood 3.1 mg/dL (2.5-4.9); Potassium, Blood 4.3 mmol/L (3.5-5.5); Sodium, Blood 135 mmol/L (136-145)
--- NOTE | 2022-05-17 18:39 | NUR ---
SHIFT SUMMARY PT UP TO BATHROOM INDEPENDENTLY USING A FWW. STILL WITH SOB WITH ACTIVITY. REPORTS HER RIBS ARE HURTING MORE DUE TO COUGHING TODAY. REPORTS TREMORS SHE GENERALLY HAS ARE WORSE WITH STEROID AND NEBULIZER TOO. FAMILY AT BEDSIDE THIS ATERNOON.
--- NOTE | 2022-05-18 05:18 | NUR ---
SHIFT UNREMARKABLE. PT TOOK 2100 MEDICATIONS WITHOUT DIFFICULTY. HAS NOT SLEPT THROUGH MUCH OF SHIFT BUT HAS BEEN RESTING IN BED. CALLS APPROPRIATELY. SATTING >90% ON ROOM AIR. DENIES SOB/CHEST PAIN. MILD DYSPNEA WITH EXERTION NOTED. LUNGS ARE WHEEZEY ON AUSCULTATION BUT NOTABLY LESS COARSE THAN IN PRIOR SHIFT. CALL LIGHT LEFT WITHIN REACH.
[2022-05-18 05:59] LABS: BASOPHILS ABSOLUTE AUTO 0.03 K/mm3 (0.00-0.23); BASOPHILS PERCENT AUTO 0 % (0-2); EOSINOPHILS PERCENT AUTO 0 % (0-6); Hemoglobin 14.6 g/dL (11.5-16.0); IMMATURE GRAN ABSOLUTE AUTO 0.15 K/mm3 (0.00-0.10); IMMATURE GRAN PERCENT AUTO 1 % (0-1); LYMPHOCYTES ABSOLUTE AUTO 1.24 K/mm3 (0.84-5.20); LYMPHOCYTES PERCENT AUTO 10 % (21-46); MONOCYTES ABSOLUTE AUTO 0.47 K/mm3 (0.16-1.47); MONOCYTES PERCENT AUTO 4 % (4-13); Mean Corpuscular HGB 29.1 pg (26.0-34.0); Mean Corpuscular HGB Conc 33.2 g/dL (31.5-36.5); Mean Corpuscular Volume 88 fL (80-100); Mean Platelet Volume 9.1 fL (9.1-12.4); NEUTROPHILS ABSOLUTE AUTO 10.42 K/mm3 (1.96-9.15); NEUTROPHILS PERCENT AUTO 85 % (41-73); Platelet Count 478 K/mm3 (150-400); RDW Coefficient Variation 14.6 % (11.7-14.2); RDW Standard Deviation 46.8 fL (35.1-46.3); Red Blood Cell Count 5.01 M/mm3 (3.80-5.20); White Blood Cell Count 12.31 K/mm3 (4.00-11.30)
[2022-05-18 06:21] LABS: Albumin, Blood 3.2 g/dL (3.4-5.0); Anion Gap 6 mmol/L (6-16); Blood Urea Nitrogen 28 mg/dL (8-24); Bun/Creatinine Ratio 40.8 (12.0-20.0); CO2, Blood 24 mmol/L (21-32); Calcium, Blood 9.6 mg/dL (8.5-10.1); Chloride, Blood 107 mmol/L (98-108); Creatinine, Blood 0.69 mg/dL (0.40-1.00); Glomerular Filtration Rate 93 (60-); Glucose, Blood 259 mg/dL (70-99); Phosphorus, Blood 3.1 mg/dL (2.5-4.9); Potassium, Blood 4.4 mmol/L (3.5-5.5); Sodium, Blood 137 mmol/L (136-145)
--- NOTE | 2022-05-18 17:11 | NUR ---
SUMMARY PT SITTING UP IN BED PLAYING ON HER PHONE, PT HAS BEEN PLEASANT AND COOPERATIVE T/O THE DAY, UP WITH MIN ASSIST, TACHY WITH ACTIVITY, MD NOTIFIED, EKG DONE, PRN ORDERED, PT ASYMPTOMATIC, PT REMAINS OFF O2, DENIES ANY CHEST PAIN OR NAUSEA, PT HOPEFUL TO DC HOME TOMORROW, VSS, WILL CONT TO MONITOR
--- NOTE | 2022-05-19 04:11 | NUR ---
RADIAL BPs VIA VITALS CART HAVE BEEN RUNNING SLIGHTLY HIGH THROUGHOUT SHIFT. RETAKEN WITH MANUAL CUFF EVERY TIME, CONSISTENTLY SHOWS BP TO BE LOWER THAN MACHINE INDICATED. ADMINISTRED IV LOPRESSOR EARLY IN SHIFT. PT HAD SUSTAINED HR OVER 125, HR HAS BEEN BELOW 120 BPM STEFANIE CONSISTENTLY SINCE. EARLY IN SHIFT PT REPORTED SEVERE PAIN ON RIGHT SIDE THAT SHE THOUGHT MAY HAVE BEEN DUE TO BROKEN RIB SHE ATTRIBUTED TO HARSH COUGHING FITS. UPON EXAMINATION, TENDERNESS WAS MILD. PT REPORTS IT FLARES UP WITH COUGHING AND PRESSURE. SPOKE WITH HOSPITALIST. ORDERED TRAMADOL 50 MG PRN FOR PAIN. ADMINISTERED AND PT HAS NOT COMPLAINED OF PAIN SINCE.SHIFT OTHERWISE UNREMARKABLE. CONTINUES TO SAT >90% ON ROOM AIR. CALL LIGHT LEFT WITHIN REACH .
[2022-05-19 05:29] LABS: BASOPHILS ABSOLUTE AUTO 0.04 K/mm3 (0.00-0.23); BASOPHILS PERCENT AUTO 0 % (0-2); EOSINOPHILS PERCENT AUTO 0 % (0-6); Hematocrit 45.6 % (33.0-51.0); Hemoglobin 14.6 g/dL (11.5-16.0); IMMATURE GRAN ABSOLUTE AUTO 0.15 K/mm3 (0.00-0.10); IMMATURE GRAN PERCENT AUTO 1 % (0-1); LYMPHOCYTES PERCENT AUTO 10 % (21-46); MONOCYTES ABSOLUTE AUTO 0.58 K/mm3 (0.16-1.47); MONOCYTES PERCENT AUTO 5 % (4-13); Mean Corpuscular HGB 28.8 pg (26.0-34.0); Mean Corpuscular Volume 90 fL (80-100); Mean Platelet Volume 9.7 fL (9.1-12.4); NEUTROPHILS ABSOLUTE AUTO 9.53 K/mm3 (1.96-9.15); NEUTROPHILS PERCENT AUTO 84 % (41-73); Platelet Count 487 K/mm3 (150-400); RDW Coefficient Variation 14.6 % (11.7-14.2); RDW Standard Deviation 48.1 fL (35.1-46.3); Red Blood Cell Count 5.07 M/mm3 (3.80-5.20)
[2022-05-19 06:17] LABS: Anion Gap 5 mmol/L (6-16); Blood Urea Nitrogen 29 mg/dL (8-24); CO2, Blood 26 mmol/L (21-32); Calcium, Blood 9.7 mg/dL (8.5-10.1); Chloride, Blood 104 mmol/L (98-108); Creatinine, Blood 0.69 mg/dL (0.40-1.00); Glomerular Filtration Rate 93 (60-); Glucose, Blood 304 mg/dL (70-99); Phosphorus, Blood 3.6 mg/dL (2.5-4.9); Potassium, Blood 4.8 mmol/L (3.5-5.5); Sodium, Blood 135 mmol/L (136-145)
[2022-05-19] MEDS ORDERED: DOXY100 PO (09:30)
[2022-05-19] MEDS ORDERED: FAMO20 PO (09:30)
[2022-05-19] MEDS ORDERED: GUAI600T33 PO (09:30)
[2022-05-19] MEDS ORDERED: Prinivil10 MG PO (09:31)
[2022-05-19] MEDS ORDERED: TRAM50 PO (09:32)
[2022-05-19] MEDS ORDERED: VISBIOME 112.51 EACH PO (09:33)
[2022-05-19] MEDS ORDERED: Prednisone20 MG PO (09:35)
[2022-05-19] MEDS ORDERED: METF500 PO (09:35)
[2022-05-19] MEDS ORDERED: FLUTICASONE-SA1 EAC1 INH (09:36)
[2022-05-19] MEDS ORDERED: ALBU90OI INH (09:39)
[2022-05-19] MEDS ORDERED: ALBU2.5V5 INH (09:44)
--- NOTE | 2022-05-19 12:08 | NUR ---
DR HANSEN ROUNDED THIS AM, PATIENT TO BE DISCHARGED HOME, RIDE AVAILABLE AT 2 PN
--- NOTE | 2022-05-19 16:06 | NUR ---
DISCHARGED, PATIENT D/C, 2 CXRAY WNL, PATIENT AND SPOUSE AGREED TO GO HOME, PATIENT ALREADY HAS A FOLLOW UP APPOINTMENT WITH PRIMARY ON SATURDAY, BOTH STATED UNDERSTANDING OF D/C FOLLOW UPS, MEDICATION, [place]
== END 2022-05-19 16:18 | disposition home or self-care (01) | DRG 189 ==
LOC: ER 13:40 → MEDS 13:41
PROVIDERS: Family Medicine; Physician Assistant; ADMIT Internal Medicine
DX: J96.01 Acute respiratory failure with hypoxia (principal); J45.901 Unspecified asthma with (acute) exacerbation; R65.10 Systemic inflammatory response syndrome (SIRS) of non-infectious origin without acute organ dysfunction; E87.1 Hypo-osmolality and hyponatremia; Z20.822 Contact with and (suspected) exposure to COVID-19; Z28.21 Immunization not carried out because of patient refusal; G47.33 Obstructive sleep apnea (adult) (pediatric); E03.9 Hypothyroidism, unspecified; M19.90 Unspecified osteoarthritis, unspecified site; H91.91 Unspecified hearing loss, right ear; M79.7 Fibromyalgia; E11.9 Type 2 diabetes mellitus without complications; D72.828 Other elevated white blood cell count; D75.838 Other thrombocytosis; I10 Essential (primary) hypertension; J06.9 Acute upper respiratory infection, unspecified; B97.89 Other viral agents as the cause of diseases classified elsewhere; E88.09 Other disorders of plasma-protein metabolism, not elsewhere classified; Z90.13 Acquired absence of bilateral breasts and nipples; Z90.89 Acquired absence of other organs; Z98.890 Other specified postprocedural states; Z88.0 Allergy status to penicillin; Z88.1 Allergy status to other antibiotic agents; Z88.2 Allergy status to sulfonamides; Z91.048 Other nonmedicinal substance allergy status; Z88.8 Allergy status to other drugs, medicaments and biological substances; Z79.890 Hormone replacement therapy; Z79.899 Other long term (current) drug therapy
CPT/HCPCS: 0202U; 0241U; 36415; 71046; 80053; 80069; 82803; 82947; 83880; 84145; 85025; 93005; 93010; 94640; 94660; 94664; 94760; 94762; 96372; 96374; 96375; 96376; 99285-25; A9270; G0378; J0360; J0696; J1650; J1815; J2930